=== PATIENT | male | born 1970 | race Caucasian/White ===

== ENCOUNTER → 2019-03-02 11:02 | Outpatient (CLI) | payer BC, SELFPAY ==
--- NOTE | 2019-03-02 11:04 | DI.RAD.S_ITS ---
PROCEDURE: XR LUMBAR SPINE 2-3V INDICATIONS: Low back pain radiating to R hip and leg TECHNIQUE: 3 views of the lumbar spine were acquired. COMPARISON: None. FINDINGS: Bones: 5 [id number] vertebrae are present. There is normal bony alignment. No vertebral body compression fractures. No suspicious bony lesions. Soft tissues: Overlying bowel gas pattern is normal. No suspicious soft tissue calcifications. IMPRESSION: Degenerative disc disease is moderate L5-S1 and facet osteoarthritis also is moderate at that level. The degenerative changes at L4-L5 there are mild and more superiorly no degeneration can be seen. Spinal and foraminal stenosis may be present at L4-5 and L5-S1 based on the degree of degeneration seen and spinal MRI may be warranted given this circumstance. Dictated by: Chava Piper M.D. on 03/02/2019 at 12:00 Approved by: Chava Piper M.D. on 03/02/2019 at 12:01
== END ==
PROVIDERS: PCP Physician Assistant; Visit Provider Physician Assistant
DX: M54.5 Low back pain (principal); M51.17 Intervertebral disc disorders with radiculopathy, lumbosacral region; M47.27 Other spondylosis with radiculopathy, lumbosacral region; M47.26 Other spondylosis with radiculopathy, lumbar region
CPT/HCPCS: 72100

== ENCOUNTER → 2019-09-07 12:02 | Outpatient (CLI) | payer OTHER, SELFPAY ==
--- NOTE | 2019-09-07 12:04 | DI.RAD.S_ITS ---
PROCEDURE: XR FINGER RT MIN 2V INDICATIONS: crushed injury TECHNIQUE: AP hand, 2 views of the 3rd finger(s) acquired. COMPARISON: None. FINDINGS: Bones: No fractures or dislocations. No suspicious bony lesions. Soft tissues: No suspicious soft tissue calcifications. IMPRESSION: No acute osseous abnormalities. Dictated by: Verito Rogers M.D. on 09/07/2019 at 14:41 Approved by: Verito Rogers M.D. on 09/07/2019 at 14:42
== END ==
PROVIDERS: PCP Physician Assistant; Visit Provider Physician Assistant
DX: S67.192A Crushing injury of right middle finger, initial encounter (principal); X58.XXXA Exposure to other specified factors, initial encounter
CPT/HCPCS: 73140

== ENCOUNTER 2020-02-15 09:34 | Emergency (ER) | payer OTHER, SELFPAY ==
[2020-02-15 09:40] VITALS: BP 133/94; PULSE 92; RESP 14; TEMP 36.9; O2SAT 99; BMI 21.9
--- NOTE | 2020-02-15 09:48 | ED_ITS ---
HPI - Extremity Injury (Lower) General Chief Complaint: Extremity Injury, Lower Stated Complaint: left foot, 3 weeks ago dropped steel plate on it Time Seen by Provider: 02/15/20 09:40 Source: patient Mode of arrival: Ambulatory Limitations: no limitations History of Present Illness HPI Narrative: 49M daily smoker with non contributory medical history presents with some ongoing pain and swelling of his left foot since a crush injury 3 weeks ago. He had been seen and evaluated at an outside facility with negative x-rays. There is abrasion but no significant break in the skin, tetanus is up-to-date. He denies any fever or chills. He has no calf pain. He states it hurts worse with ambulation and improves with rest. He is otherwise well and free of complaint MD complaint: foot injury Onset (ago): week(s) Type of Injury: blunt Place: work Severity: moderate Relieving factors: rest Exacerbating factors: weight bearing and movement Context: direct blow Associated symptoms: swelling Other symptoms: none Treatments prior to arrival: cold therapy Related Data Previous Rx's Medication Instructions Recorded doxycycline hyclate 100 mg PO BID #20 tab 02/15/20 Allergies Allergy/AdvReac Type Severity Reaction Status Date / Time naproxen [NAPROXEN] Allergy Intermediate RIP MY Verified 02/15/20 09:46 SKIN OFF Penicillins [PENICILLINS] Allergy Unknown MOTHER Verified 02/15/20 09:46 SAID SO Review of Systems Constitutional Constitutional: Denies chills, Denies fatigue, Denies fever(s), Denies frequent falls, Denies lethargy and Denies weakness Eyes Eyes: Denies change in vision, Denies eye discharge, Denies irritation and Denies loss of vision ENT Ears, Nose, Mouth, and Throat: Denies change in voice, Denies dizziness, Denies neck pain, Denies sore throat and Denies throat swelling Cardiovascular Cardiovascular: Denies chest pain, Denies irregular heart rhythm, Denies lightheadedness, Denies palpitations, Denies dyspnea, Denies dyspnea on exertion and Denies orthopnea Respiratory Respiratory: Denies cough, Denies dyspnea, Denies dyspnea on exertion and Denies wheezing Gastrointestinal Gastrointestinal: Denies abdominal pain, Denies change in bowel habits, Denies diarrhea, Denies nausea and Denies vomiting Genitourinary Genitourinary: Denies hematuria, Denies flank pain, Denies urinary incontinence and Denies urinary urgency Musculoskeletal Musculoskeletal: Denies back pain, Reports limited range of motion, Denies muscle weakness, Denies neck pain, Denies numbness and Denies tingling Integumentary/Breasts Skin/Breast: Denies pruritus, Denies erythema, Denies rash and Denies wounds Neurologic Neurologic: Denies behavioral changes, Denies confusion, Denies dizziness, Denies frequent falls, Denies loss of vision, Denies numbness, Denies tingling and Denies weakness Psychiatric Psychiatric: Denies anxiety, Denies behavioral changes, Denies confusion, Denies depression, Denies homicidal ideation and Denies suicidal ideation Endocrine Endocrine: Denies fatigue, Denies flushing and Denies palpitations Hematologic/Lymphatic Hematologic/Lymphatic: Denies easy bruising Allergic/Immunologic Allergic/Immunologic: Denies urticaria, Denies throat swelling and Denies wheezing Patient History Social History Smoking Status: Current every day smoker Smoking Status: Current every day smoker alcohol intake frequency: 0-2 drinks per day Substance Use Type: does not use Exam Narrative Exam Narrative: GEN: AOx3 and in mild distress EYES: Pupils are equal, round, and reactive to light and accommodation. Extraoccular muscles are intact bilaterally. There is no subconjunctival hemorrhage or exudate. CHEST: Lungs are clear to auscultation bilaterally and free of wheezes, rales, or rhonchi. Heart rate is regular rhythm, there are no murmurs, clicks, rubs, or gallops. There is no chest wall tenderness. ABD: Abdomen is soft and nontender. There is no guarding or rebound. Bowel sounds are normal in all 4 quadrants. There is no mass or organomegaly. EXT: Left foot with mild swelling and appropriately healing abrasion, minimal erythema no fluctuance or induration. No lymphangitis Full painless ROM of all extremities with no loss of sensation or strength. SKIN: Warm, pink, and dry. No erythema or rash other than that which is noted above Initial Vital Signs Initial Vital Signs: Vital Signs Temperature 98.5 F 02/15/20 09:40 Pulse Rate 92 H 02/15/20 09:40 Respiratory Rate 14 02/15/20 09:40 Blood Pressure 133/94 H 02/15/20 09:40 Pulse Oximetry 99 05/14/20 09:40 Course Orders Ordered: ED Orders 02/15/20 09:48 XR foot LT min 3V Stat Vital Signs Vital signs: Vital Signs - 8 hr 02/15/20 09:40 Temperature 98.5 F Pulse Rate 92 H Respiratory Rate 14 Blood Pressure 133/94 H Pulse Oximetry 99 MDM - Extremity Injury (Lower) Imaging Data Extremity x-ray #1: Radiologist's Impression: [address] [address] XRay Report Signed Patient: Adebayo Castañeda JMR#: [id number] : 1970Acct:[id number] Age/Sex: 49 / MDate of Service: 02/15/20 Loc: ED Accession Number: [id number] Procedure: XR foot LT min 3V Ordering Provider: Bry Tay D.O. PROCEDURE: XR FOOT LT MIN 3V INDICATIONS: crush injury, worsening pain/swelling TECHNIQUE: 3 views of the foot were acquired. COMPARISON: None. FINDINGS: Bones: No fractures or dislocations. No suspicious bony lesions. Soft tissues: No tibiotalar joint effusion. Achilles tendon appears normal. IMPRESSION: No acute fracture. No osseous lesion. If symptoms and/or clinical suspicion for pathology persist, further assessment with repeat, or advanced imaging (e.g., CT, MRI, or bone scan) may be helpful for further assessment. Dictated by: Stefany Lehman M.D. on 02/15/2020 at 10:48 Approved by: Stefany Lehman M.D. on 02/15/2020 at 10:48 Discharge Plan Departure Patient Disposition: Home Clinical Impression: Cellulitis of foot Instructions: DI for Cellulitis -- Adult Activity Restrictions/Additional Instructions: *You have been diagnosed with [cellulitis of left foot] *What to do: *Take medications as directed: Antibiotic electronically transmitted to [facility] pharmacy at your request *Follow up with your primary care provider in 2-3 days, call for an appointment. Let them know you were seen in the Emergency Department and that we ask that you be seen in follow up *Return to ER if you should have any new, worsening or concerning symptoms Prescriptions: New doxycycline hyclate 100 mg tablet 100 mg PO BID Qty: 20 RF: 0 Referrals: Abimbola Farah PA-C [Primary Care Provider] -
[2020-02-15 11:15] VITALS: BP 133/94; PULSE 76; RESP 12; O2SAT 98
== END 2020-02-15 11:17 | disposition home or self-care (01) ==
PROVIDERS: Emergency Provider Emergency Medicine; PCP Physician Assistant
DX: L03.116 Cellulitis of left lower limb (principal)
CPT/HCPCS: 73630; 99283

== ENCOUNTER 2022-02-19 10:53 | Emergency (ER) | payer SELFPAY ==
[2022-02-19] VITALS (10 sets, daily range): BP systolic 119–158; BP diastolic 76–99; PULSE 86–99; RESP 12–20; TEMP 36.6; O2SAT 99–100; BMI 21.9
--- NOTE | 2022-02-19 11:01 | DI.RAD.S_ITS ---
PROCEDURE: XR CHEST 1V INDICATIONS: chest pain TECHNIQUE: One view of the chest was acquired. COMPARISON: [facility], , CHEST 2 VIEW, 05/23/2015, 14:59. FINDINGS: Surgical changes and devices: None. Lungs and pleura: Lungs are clear. No pleural effusions or pneumothorax. Mediastinum: Mediastinal contours appear normal. Heart size is normal. Bones and chest wall: No suspicious bony lesions. Overlying soft tissues appear unremarkable. There is scoliosis of the cervicothoracic spine. IMPRESSION: No acute cardiopulmonary abnormality. Dictated by: Kameron Molina M.D. on 02/19/2022 at 11:28 Approved by: Kameron Molina M.D. on 02/19/2022 at 11:29
[2022-02-19 11:35] LABS: NT-proBNP (BNP-Adult 18+) 78 pg/mL (<125)
[2022-02-19 11:43] LABS: COVID19 -Nasal RAPID Negative (Negative)
[2022-02-19 12:18] LABS: Add Manual Diff / Slide Review NO; Basophils Absolute Auto 100 /uL (0-100); Basophils Percent Auto 0.8 % (0-2); Eosinophils Absolute Auto 100 /uL (0-450); Eosinophils Percent Auto 0.7 % (2-4); Hematocrit 42.8 % (41-53); Hemoglobin 15.2 g/dL (13.5-17.5); Lymphocytes Absolute Auto 3100 /uL (1100-4500); Lymphocytes Percent Auto 35.4 % (25-40); Mean Corpuscular HGB Conc 35.4 % (30-36); Mean Corpuscular Hemoglobin 33.8 PG (26-34); Mean Corpuscular Volume 95.4 fL (80-100); Monocytes Absolute Auto 800 /uL (0-900); Monocytes Percent Auto 9.5 % (3-14); Neutrophils Absolute Auto 4700 /uL (1500-7000); Neutrophils Percent Auto 53.6 % (50-75); Platelet Count 327 X10^3/uL (150-400); Red Blood Cell Count 4.49 X10^6/uL (4.5-5.9); Red Cell Distribution Width 12.5 % (11.6-14.8); White Blood Cell Count 8.8 X10^3/uL (4.5-11.0)
[2022-02-19 12:21] LABS: Alanine Aminotransferase 123 IU/L (<50); Albumin 3.6 g/dL (3.5-5.0); Albumin Globulin Ratio 1.2 (1.0-2.8); Alkaline Phosphatase 193 U/L (38-126); Aspartate Aminotransferase 154 IU/L (17-59); BUN Creatinine Ratio 9.3 (6-22); Bilirubin Total 1.8 mg/dL (0.2-1.3); Blood Urea Nitrogen 8 mg/dL (9-20); Calcium 8.9 mg/dL (8.4-10.2); Carbon Dioxide 24 mmol/L (22-32); Chloride 98 mmol/L (98-107); Creatine Kinase 24 U/L (55-170); Estimated Glomerular Filt Rate > 60 mL/min (>60); Globulin 3.1 g/dL (1.7-4.1); Glucose 95 mg/dL (70-100); HEMOLYSIS 22 (0-50); Lipase 87 U/L (23-300); Potassium 4.6 mmol/L (3.4-5.1); Sodium 130 mmol/L (137-145); Total Protein 6.7 g/dL (6.3-8.2)
[2022-02-19 12:33] LABS: Troponin I < 0.012 ng/mL (0.01-0.034)
--- NOTE | 2022-02-19 14:15 | ED_ITS ---
HPI - Chest Pain General Chief Complaint: Chest Pain Stated Complaint: chest pain left arm pain tingle Time Seen by Provider: 02/19/22 11:05 Source: patient Mode of arrival: Ambulatory Limitations: no limitations Limitations: no limitations History of Present Illness HPI narrative: This is a 51-year-old male comes in with complaint of epigastric pain that is intermittent it seems to be worse with food. Patient states he will occasionally get nauseated, sometimes feel lightheaded. He has not any syncope but he has had decreasing weight over the past several months no fevers or chills. He describes his pain more is epigastric. Patient has not had any new back or flank pain. He will occasionally have diarrhea but not frequently. No black or bloody stools. No emesis. No rash or skin changes. Patient does not have any known past medical history, no prior surgeries, he is allergic to penicillin and naproxen but states he can take ibuprofen without issue. He smokes a pack per day of tobacco, 1 alcoholic drink nightly, no illicit. Related Data Previous Rx's Medication Instructions Recorded doxycycline hyclate 100 mg tablet 100 mg PO BID #20 tab 02/15/20 Allergies Allergy/AdvReac Type Severity Reaction Status Date / Time naproxen [NAPROXEN] Allergy Intermediate RIP MY Verified 02/19/22 11:12 SKIN OFF Penicillins [PENICILLINS] Allergy Unknown MOTHER Verified 02/19/22 11:12 SAID SO Review of Systems Review of Systems ROS Unobtainable: All systems reviewed & are unremarkable except as noted in HPI and below Patient History Social History Smoking Status: Current every day smoker Smoking Status: Current every day smoker alcohol intake frequency: 0-2 drinks per day Substance Use Type: does not use Exam Narrative Exam Narrative: GENERAL: Alert and oriented x three, thin male in mild distress. HEENT: Head normocephalic, atraumatic, EOMI, pupils reactive, face symmetric, moist mucous membranes NECK: Supple, full range of motion CARDIOVASCULAR: Regular rate and rhythm without murmurs, rubs or gallops. RESPIRATORY: Breath sounds equal bilaterally, no wheezes rales or rhonchi. ABDOMEN: Soft, mild epigastric tenderness. Normoactive bowel sounds all 4 quadr ants. No guarding or rebound, rigidity, no mass : No CVA tenderness EXTREMITIES: Normal range of motion, no clubbing or edema. Neurovascularly intact NEUROLOGICAL: Cranial nerves II through XII grossly intact. Moving all extremities SKIN: Warm, dry, no petechiae, no rashes or lesions. Initial Vital Signs Initial Vital Signs: Vital Signs Blood Pressure 158/99 H 02/19/22 11:05 Course Orders Ordered: ED Orders 02/19/22 10:59 Magnesium Stat Partial Thromboplastin Time Stat Prothrombin Time INR Stat 02/19/22 11:01 XR chest 1V Stat EKG-12 Lead Stat 02/19/22 11:07 BNP [NT-proBNP (BNP-Adult 18+)] Stat Complete Blood Count AUTO DIFF Stat Comprehensive Metabolic Panel Stat Lipase Stat Troponin & CK Cardiac Panel Stat 02/19/22 11:10 COVID19 -Nasal RAPID/Pre-Proc Stat 02/19/22 14:29 US abdomen complete Stat 02/19/22 15:48 Hepatitis Acute Panel Stat Vital Signs Vital signs: Vital Signs - 8 hr 02/19/22 11:05 02/19/22 11:09 02/19/22 11:13 Temperature 97.9 F Pulse Rate 99 H Respiratory Rate 18 Blood Pressure 158/99 H 139/89 158/99 H Pulse Oximetry 100 02/19/22 11:30 02/19/22 12:00 02/19/22 12:30 Temperature Pulse Rate 88 90 88 Respiratory Rate 12 19 13 Blood Pressure 120/82 128/82 119/82 Pulse Oximetry 100 100 100 02/19/22 13:00 02/19/22 13:25 02/19/22 13:30 Temperature Pulse Rate 87 90 86 Respiratory Rate 17 15 20 Blood Pressure 127/76 133/90 132/88 Pulse Oximetry 99 99 100 02/19/22 14:00 Temperature Pulse Rate 88 Respiratory Rate 18 Blood Pressure 120/89 Pulse Oximetry 100 MDM - Chest Pain Lab Data Result diagrams: 02/19/22 11:07 02/19/22 11:07 Labs: Lab Results 02/19/22 02/19/22 02/19/22 Range/Units 11:07 11:07 11:07 WBC (4.5-11.0) X10^3/uL RBC (4.5-5.9) X10^6/uL Hgb (13.5-17.5) g/dL Hct (41-53) % MCV (80-100) fL MCH (26-34) PG MCHC (30-36) % RDW (11.6-14.8) % Plt Count (150-400) X10^3/uL Neut % (Auto) (50-75) % Lymph % (Auto) (25-40) % Sheridan % (Auto) (3-14) % Eos % (Auto) (2-4) % Baso % (Auto) (0-2) % Neut # (Auto) (9721-2040) /uL Lymph # (Auto) (7561-1988) /uL Sheridan # (Auto) (0-900) /uL Eos # (Auto) (0-450) /uL Baso # (Auto) (0-100) /uL PT 10.1 (10.1-12.7) SECONDS INR 0.9 (0.9-1.3) APTT 33 (26.4-36.2) SECONDS Sodium (137-145) mmol/L Potassium (3.4-5.1) mmol/L Chloride (98-107) mmol/L Carbon Dioxide (22-32) mmol/L BUN (9-20) mg/dL Creatinine (0.66-1.25) mg/dL Estimated GFR (>60) mL/min BUN/Creatinine Ratio (6-22) Glucose (70-100) mg/dL Calcium (8.4-10.2) mg/dL Magnesium 2.1 (1.6-2.3) mg/dL Total Bilirubin (0.2-1.3) mg/dL AST (17-59) IU/L ALT (<50) IU/L Alkaline Phosphatase (38-126) U/L Total Creatine Kinase (55-170) U/L CK-MB (CK-2) CK-MB (CK-2) Rel Index Troponin I (0.01-0.034) ng/mL NT-Pro-B Natriuret Pep 78 (<125) pg/mL Total Protein (6.3-8.2) g/dL Albumin (3.5-5.0) g/dL Globulin (1.7-4.1) g/dL Albumin/Globulin Ratio (1.0-2.8) Lipase (23-300) U/L SARS-CoV-2 (PCR) (Negative) Hepatitis A IgM Ab (Negative) Hep Bs Antigen (Negative) Hep B Core IgM Ab (Negative) Hepatitis C Antibody (0.0-0.9) s/co ratio Hep C Ab Signal/Cutoff (.) 02/19/22 02/19/22 02/19/22 Range/Units 11:07 11:07 11:10 WBC 8.8 (4.5-11.0) X10^3/uL RBC 4.49 L (4.5-5.9) X10^6/uL Hgb 15.2 (13.5-17.5) g/dL Hct 42.8 (41-53) % MCV 95.4 (80-100) fL MCH 33.8 (26-34) PG MCHC 35.4 (30-36) % RDW 12.5 (11.6-14.8) % Plt Count 327 (150-400) X10^3/uL Neut % (Auto) 53.6 (50-75) % Lymph % (Auto) 35.4 (25-40) % Sheridan % (Auto) 9.5 (3-14) % Eos % (Auto) 0.7 L (2-4) % Baso % (Auto) 0.8 (0-2) % Neut # (Auto) 4700 (1799-5603) /uL Lymph # (Auto) 3100 (0050-0272) /uL Sheridan # (Auto) 800 (0-900) /uL Eos # (Auto) 100 (0-450) /uL Baso # (Auto) 100 (0-100) /uL PT (10.1-12.7) SECONDS INR (0.9-1.3) APTT (26.4-36.2) SECONDS Sodium 130 L (137-145) mmol/L Potassium 4.6 (3.4-5.1) mmol/L Chloride 98 (98-107) mmol/L Carbon Dioxide 24 (22-32) mmol/L BUN 8 L (9-20) mg/dL Creatinine 0.86 (0.66-1.25) mg/dL Estimated GFR > 60 (>60) mL/min BUN/Creatinine Ratio 9.3 (6-22) Glucose 95 (70-100) mg/dL Calcium 8.9 (8.4-10.2) mg/dL Magnesium (1.6-2.3) mg/dL Total Bilirubin 1.8 H (0.2-1.3) mg/dL AST 154 H (17-59) IU/L ALT 123 H (<50) IU/L Alkaline Phosphatase 193 H (38-126) U/L Total Creatine Kinase 24 L (55-170) U/L CK-MB (CK-2) TNP CK-MB (CK-2) Rel Index TNP Troponin I < 0.012 (0.01-0.034) ng/mL NT-Pro-B Natriuret Pep (<125) pg/mL Total Protein 6.7 (6.3-8.2) g/dL Albumin 3.6 (3.5-5.0) g/dL Globulin 3.1 (1.7-4.1) g/dL Albumin/Globulin Ratio 1.2 (1.0-2.8) Lipase 87 (23-300) U/L SARS-CoV-2 (PCR) Negative (Negative) Hepatitis A IgM Ab (Negative) Hep Bs Antigen (Negative) Hep B Core IgM Ab (Negative) Hepatitis C Antibody (0.0-0.9) s/co ratio Hep C Ab Signal/Cutoff (.) 02/19/22 Range/Units 16:00 WBC (4.5-11.0) X10^3/uL RBC (4.5-5.9) X10^6/uL Hgb (13.5-17.5) g/dL Hct (41-53) % MCV (80-100) fL MCH (26-34) PG MCHC (30-36) % RDW (11.6-14.8) % Plt Count (150-400) X10^3/uL Neut % (Auto) (50-75) % Lymph % (Auto) (25-40) % Sheridan % (Auto) (3-14) % Eos % (Auto) (2-4) % Baso % (Auto) (0-2) % Neut # (Auto) (1744-9992) /uL Lymph # (Auto) (1436-2532) /uL Sheridan # (Auto) (0-900) /uL Eos # (Auto) (0-450) /uL Baso # (Auto) (0-100) /uL PT (10.1-12.7) SECONDS INR (0.9-1.3) APTT (26.4-36.2) SECONDS Sodium (137-145) mmol/L Potassium (3.4-5.1) mmol/L Chloride (98-107) mmol/L Carbon Dioxide (22-32) mmol/L BUN (9-20) mg/dL Creatinine (0.66-1.25) mg/dL Estimated GFR (>60) mL/min BUN/Creatinine Ratio (6-22) Glucose (70-100) mg/dL Calcium (8.4-10.2) mg/dL Magnesium (1.6-2.3) mg/dL Total Bilirubin (0.2-1.3) mg/dL AST (17-59) IU/L ALT (<50) IU/L Alkaline Phosphatase (38-126) U/L Total Creatine Kinase (55-170) U/L CK-MB (CK-2) CK-MB (CK-2) Rel Index Troponin I (0.01-0.034) ng/mL NT-Pro-B Natriuret Pep (<125) pg/mL Total Protein (6.3-8.2) g/dL Albumin (3.5-5.0) g/dL Globulin (1.7-4.1) g/dL Albumin/Globulin Ratio (1.0-2.8) Lipase (23-300) U/L SARS-CoV-2 (PCR) (Negative) Hepatitis A IgM Ab Negative (Negative) Hep Bs Antigen Negative (Negative) Hep B Core IgM Ab Negative (Negative) Hepatitis C Antibody <0.1 (0.0-0.9) s/co ratio Hep C Ab Signal/Cutoff Comment (.) Imaging Data Chest x-ray: Radiologist's Impression: [address] [address] XRay Report Signed Patient: Adebayo Castañeda MR#: [id number] : 1970 Acct:[id number] Age/Sex: 51 / M Date of Service: 02/19/22 Loc: ED Accession Number: [id number] ?? Procedure: XR chest 1V Ordering Provider: Renetta Bauman D.O. PROCEDURE:? XR CHEST 1V ? INDICATIONS:? chest pain ? TECHNIQUE:? One view of the chest was acquired.? ? COMPARISON:? [facility], CR, CHEST 2 VIEW, 05/23/2015, 14:59. ? FINDINGS:? ? Surgical changes and devices:? None.? ? Lungs and pleura:? Lungs are clear.? No pleural effusions or pneumothorax.? ? Mediastinum:? Mediastinal contours appear normal.? Heart size is normal.? ? Bones and chest wall:? No suspicious bony lesions.? Overlying soft tissues appear unremarkable.? There is scoliosis of the cervicothoracic spine. ? IMPRESSION:? No acute cardiopulmonary abnormality. ? ? ? Dictated by: Kameron Molina M.D. on 02/19/2022 at 11:28 ? ? Approved by: Kameron Molina M.D. on 02/19/2022 at 11:29?? US - abdomen: Radiologist's Impression: Launch?[place] [address] Ultrasound Report Signed Patient: Adebayo Castañeda MR#: [id number] : 1970 Acct:[id number] Age/Sex: 51 / M Date of Service: 02/19/22 Loc: ED Accession Number: [id number] ?? Procedure: US abdomen complete Ordering Provider: Renetta Bauman D.O. PROCEDURE:? US ABDOMEN COMPLETE ? INDICATIONS:? epigastric pain, elevated. ? TECHNIQUE:? Real-time scanning was performed of the abdominal and retroperitoneal organs, with image documentation.? ? COMPARISON:? None. ? FINDINGS:? ? Liver:? Liver is normal in size and homogeneous in echotexture.? ? Gallbladder:? No stones.? No wall thickening or pericholecystic fluid. ? Biliary ducts:? Intrahepatic bile ducts are non-dilated.? Extrahepatic bile duct caliber measures 3.3 mm.? Normal is 6-7 mm or less in diameter, or 10 mm or less post-cholecystectomy.? ? Pancreas:? Not well seen. ? Spleen:? Not visualized. ? Kidneys:? Kidneys are normal in size and echotexture.? Right kidney measures 10.5 cm long; left kidney measures 9.5 cm long.? No hydronephrosis or nephrolithiasis.? No solid masses.? ? Aorta:? Visualized aorta is normal in caliber at less than 3 cm.? ? Iliacs:? Proximal common iliac arteries are normal in caliber at less than 2.5 cm.? ? IVC:? Intrahepatic inferior vena cava is patent.? ? Miscellaneous:? No free abdominal fluid.? ? ? IMPRESSION:? Limited exam due to large amount of bowel gas.? No acute abnormality identified. ? ? Dictated by: Kameron Molina M.D. on 02/19/2022 at 15:27 ? ? Approved by: Kameron Molina M.D. on 02/19/2022 at 15:29?? ECG Data Attestation: I personally reviewed and interpreted this ECG as follows: Prior ECG tracings: available for review Interpretation: Sinus rhythm, 96, MS 154, QRS [address]TC [address] No acute ST elevation noted. No depression noted. Patient does not have any priors for comparison. MDM Narrative Medical decision making narrative: This is a 51-year-old male who comes in for chest pain but after further evaluation seems to be more epigastric with nausea, weight loss and symptoms worsened with food. Patient has elevation in his bilirubin, AST/ALT and alk- phos. Patient does not have any known medical issues but has not seen a physician in some time, he does use tobacco and occasional alcohol. He states he was prompted to come today by his significant other and was then referred from the walk-in clinic here. Patient EKG and troponin do not show any major abnormalities ultrasound was obtained which does not show any clear cause for his elevated liver enzymes. Hepatitis panel sent. Patient was recommended have CT scan, he has been here quite some time and would like to return home. He is aware that he does need to follow-up. He does not currently have insurance and was given paperwork for [employer] and is open to having social Work reach out to him to assist. Patient is aware that he does need follow-up irregardless of his hepatitis panel is negative. Discharge Plan Departure Patient Disposition: Home Clinical Impression: Epigastric pain Instructions: DI for Epigastric Pain Activity Restrictions/Additional Instructions: Follow up with primary care for recheck. If you do not have one you can call [phone] to establish care. Your liver enzymes are elevated today and need to be followed. A hepatitis panel is pending. This uptake several days to week to result. You need to follow up these results if her hepatitis panel is positive he will require treatment. If negative you need to follow-up with either a primary care physician or General surgery for more evaluation for your liver enzymes. Please return for fevers, new or worsening abdominal pain, persistent vomiting, passing out, black, bloody stools, garry-colored stools or other new or co ncerning symptoms. Prescriptions: No Action doxycycline hyclate 100 mg tablet 100 mg PO BID Qty: 20 0RF Referrals: Kameron Kevin MD [Physician] - Miscellaneous,MD Bharath [Primary Care Provider] -
--- NOTE | 2022-02-19 14:29 | DI.US.S_ITS ---
PROCEDURE: US ABDOMEN COMPLETE INDICATIONS: epigastric pain, elevated. TECHNIQUE: Real-time scanning was performed of the abdominal and retroperitoneal organs, with image documentation. COMPARISON: None. FINDINGS: Liver: Liver is normal in size and homogeneous in echotexture. Gallbladder: No stones. No wall thickening or pericholecystic fluid. Biliary ducts: Intrahepatic bile ducts are non-dilated. Extrahepatic bile duct caliber measures 3.3 mm. Normal is 6-7 mm or less in diameter, or 10 mm or less post-cholecystectomy. Pancreas: Not well seen. Spleen: Not visualized. Kidneys: Kidneys are normal in size and echotexture. Right kidney measures 10.5 cm long; left kidney measures 9.5 cm long. No hydronephrosis or nephrolithiasis. No solid masses. Aorta: Visualized aorta is normal in caliber at less than 3 cm. Iliacs: Proximal common iliac arteries are normal in caliber at less than 2.5 cm. IVC: Intrahepatic inferior vena cava is patent. Miscellaneous: No free abdominal fluid. IMPRESSION: Limited exam due to large amount of bowel gas. No acute abnormality identified. Dictated by: Kameron Molina M.D. on 02/19/2022 at 15:27 Approved by: Kameron Molina M.D. on 02/19/2022 at 15:29
[2022-02-19 15:55] LABS: INR 0.9 (0.9-1.3); Prothrombin Time 10.1 SECONDS (10.1-12.7)
[2022-02-19 15:58] LABS: PTT Partial Thromboplastin Tim 33 SECONDS (26.4-36.2)
[2022-02-19 16:22] LABS: Magnesium 2.1 mg/dL (1.6-2.3)
[2022-02-20 06:19] LABS: HBsAg Screen Negative (Negative); Hepatitis A Antibody IgM Negative (Negative); Hepatitis B Core Antibody IgM Negative (Negative); Hepatitis C Antibody <0.1 s/co ratio (0.0-0.9)
== END 2022-02-19 16:32 | disposition home or self-care (01) ==
PROVIDERS: Emergency Provider Emergency Medicine
DX: R10.13 Epigastric pain (principal); R11.0 Nausea; R42 Dizziness and giddiness; R07.9 Chest pain, unspecified; Z20.822 Contact with and (suspected) exposure to COVID-19
CPT/HCPCS: 36415; 71045; 76700; 80053; 80074; 82550; 83690; 83735; 83880; 84484; 85025; 85610; 85730; 87635; 93005; 93010; 99284; C9803

== ENCOUNTER 2023-08-06 18:18 | Emergency (ER) | payer OTHER, SELFPAY ==
[2023-08-06 18:28] VITALS: BP 131/78; PULSE 99; RESP 17; TEMP 36.8; O2SAT 98; BMI 21.9
--- NOTE | 2023-08-06 18:33 | DI.RAD.S_ITS ---
PROCEDURE: XR HIP W PEL IF DONE LT 2V INDICATIONS: fall, groin pain TECHNIQUE: AP pelvis with lateral view(s) of the left hip(s). COMPARISON: None. FINDINGS: Bones: Possible nondisplaced left inferior pubic ramus fracture. The corresponding obturator ring fracture is not identified. Proximal femur appears intact. No dislocation. Joint spacing is fairly normal. Soft tissues: The visualized bowel gas pattern is normal. No suspicious soft tissue calcifications. IMPRESSION: 1. Suspect nondisplaced left inferior pubic ramus fracture. Dictated by: Dian Dutton M.D. on 08/06/2023 at 20:40 Approved by: Dian Dutton M.D. on 08/06/2023 at 20:41
[2023-08-06] MEDS: HYDROCODONE/ACET 5/325 TABLET 1 TAB PO (21:49)
--- NOTE | 2023-08-06 22:14 | ED.FALL ---
HPI - Fall General Chief Complaint: Fall Stated Complaint: fell at work/lt hip inj/can't walk Time Seen by Provider: 08/06/23 21:37 Source: patient Mode of arrival: Wheelchair History of Present Illness HPI Narrative: Patient is a 53-year-old male who is here for evaluation of a left-sided groin/lower back/pelvic injury. He states that he was at work. He was pulling on an object when he fell backwards and landed directly on his buttocks/left hip. Has had difficulty with walking on his left hip since that time. No other injuries from the event. Did not hit his head. No loss of consciousness. No prior injuries. Related Data Previous Rx's Medication Instructions Recorded doxycycline hyclate 100 mg tablet 100 mg PO BID #20 tabs 02/15/20 hydrocodone 5 mg-acetaminophen 325 1 tab PO Q4-6H PRN pain #14 tabs 08/06/23 mg tablet Allergies Allergy/AdvReac Type Severity Reaction Status Date / Time naproxen [NAPROXEN] Allergy Intermediate RIP MY Verified 08/06/23 18:28 SKIN OFF Penicillins [PENICILLINS] Allergy Unknown MOTHER Verified 08/06/23 18:28 SAID SO Review of Systems Musculoskeletal Musculoskeletal: Reports system reviewed and no additional complaints, except as documented Integumentary/Breasts Skin/Breast: Reports system reviewed and no additional complaints, except as documented Neurologic Neurologic: Reports system reviewed and no additional complaints, except as documented Hematologic/Lymphatic On Anticoagulants: No Patient History Social History Smoking Status: Current every day smoker Smoking Status: Current every day smoker alcohol intake frequency: 0-2 drinks per day Substance Use Type: does not use Exam Initial Vital Signs Initial Vital Signs: Vital Signs Temperature 98.2 F 08/06/23 18:28 Pulse Rate 99 H 08/06/23 18:28 Respiratory Rate 17 08/06/23 18:28 Blood Pressure 131/78 08/06/23 18:28 Pulse Oximetry 98 08/06/23 18:28 Oxygen Delivery Method Room Air 08/06/23 18:28 HENWV Head: normal to inspection and normocephalic Resp Effort & Inspection: normal respiratory effort Cardio Rate: regular rate Neuro General: patient alert and patient awake Extrem Other: Discomfort with movement of the left hip Course Orders Ordered: Discontinued Medications Hydrocodone Bitart/Acetaminophen (Hydrocodone/Acet 5/325 Tablet) 1 tab PO NOW ONE Stop: 08/06/23 21:38 Last Admin: 08/06/23 21:49 Dose: 1 tab Documented By: RUTH Hydrocodone Bitart/Acetaminophen (Hydrocodone/Acet 5/325 Prepack) 1 bottle MIS SEEINSTR ONE Stop: 08/06/23 22:15 Last Admin: 08/06/23 22:30 Dose: 1 bottle Documented By: RUTH Vital Signs Vital signs: Vital Signs - 8 hr 08/06/23 22:41 Temperature 98 F Pulse Rate 78 Respiratory Rate 18 Blood Pressure 148/82 H Pulse Oximetry 96 Oxygen Delivery Method Room Air MDM - Fall Imaging Data Pelvis x-ray: Radiologist's Impression: PROCEDURE: XR HIP W PEL IF DONE LT 2V INDICATIONS: fall, groin pain TECHNIQUE: AP pelvis with lateral view(s) of the left hip(s). COMPARISON: None. FINDINGS: Bones: Possible nondisplaced left inferior pubic ramus fracture. The corresponding obturator ring fracture is not identified. Proximal femur appears intact. No dislocation. Joint spacing is fairly normal. Soft tissues: The visualized bowel gas pattern is normal. No suspicious soft tissue calcifications. IMPRESSION: 1. Suspect nondisplaced left inferior pubic ramus fracture. [facility] Narrative Medical decision making narrative: X-ray does show left inferior pubic rami fracture. Had a long discussion with the patient and his regarding this injury. No indication for admission to the hospital. He has crutches and a walker available to him at home if needed. Will send home with pain medication. No indication for advanced radiologic studies such as a CT scan. He was given return precautions. He expressed understanding and agreement. Discharge Plan Departure Patient Disposition: Home Clinical Impression: Inferior pubic ramus fracture Instructions: DI for Pelvic Fracture Activity Restrictions/Additional Instructions: You are able to walk as tolerated. You can use the crutches or walker as needed. Use the pain medication as needed as well. Contact your primary doctor for a follow-up. Return to the emergency department for new or worsening symptoms. Prescriptions: New hydrocodone-acetaminophen 5-325 mg tablet 1 tab PO Q4-6H PRN (Reason: pain) Qty: 14 0RF No Action doxycycline hyclate 100 mg tablet 100 mg PO BID Qty: 20 0RF Referrals: Miscellaneous,Doctor, [Primary Care Provider] - Stand Alone Forms: Patient Portal/API, Work Release Note
[2023-08-06] MEDS: HYDROCODONE/ACET 5/325 PREPACK 1 BOTTLE MISC (22:30)
[2023-08-06 22:41] VITALS: BP 148/82; PULSE 78; RESP 18; TEMP 36.6; O2SAT 96
== END 2023-08-06 22:42 | disposition home or self-care (01) ==
PROVIDERS: Emergency Provider Emergency Medicine
DX: S32.592A Other specified fracture of left pubis, initial encounter for closed fracture (principal); W18.30XA Fall on same level, unspecified, initial encounter; Y99.0 Civilian activity done for income or pay
CPT/HCPCS: 73502; 99283

== ENCOUNTER → 2023-10-26 10:59 | Outpatient (CLI) | payer OTHER, SELFPAY ==
--- NOTE | 2023-10-26 11:00 | DI.CT.S_ITS ---
PROCEDURE: CT LUNG LOW DOSE SCREENING INDICATIONS: Screen for lung cancer with smoking history TECHNIQUE: Noncontrast 2.0-2.5 mm thick sections acquired from the pulmonary apices to the posterior costophrenic angles. 7 mm thick axial MIP, and 5 mm coronal and sagittal reformats were then acquired. For radiation dose reduction, the following was used: automated exposure control, adjustment of mA and/or kV according to patient size. COMPARISON: None. FINDINGS: Image quality: Diagnostic. Lower Neck: No enlarged lymph nodes. Thyroid: No thyroid nodules which require sonographic follow up, per consensus guidelines. Axillae: No enlarged lymph nodes. Chest Wall: Unremarkable. Bones: Unremarkable. Lungs and Pleura: No pneumothorax or pleural effusions. Moderate centrilobular emphysema. Biapical scarring. 2 mm solid nodule, anterior left upper lobe (series 3, image 52). Heart: Heart size is normal. No pericardial effusion. Marked coronary artery calcifications for age. Thoracic Vessels: The aorta and pulmonary arteries demonstrate normal size. Mediastinum and Krissy: No enlarged lymph nodes. Esophagus: No wall thickening. No hiatal hernia. Upper Abdomen: Visualized upper abdomen solid organs and bowel loops appear normal. IMPRESSION: No suspicious pulmonary nodules. LUNG-RADS 2; continued annual screening, if eligible. Clinically Significant Non-pulmonary Findings: Marked coronary artery calcifications for age. Consider cardiology referral. Dictated by: Ron Graham M.D. on 10/26/2023 at 13:12 Approved by: Ron Graham M.D. on 10/26/2023 at 13:14
== END ==
LOC: CT 11:00
PROVIDERS: PCP Student in an Organized Health Care Education/Training Program; Referring Provider Student in an Organized Health Care Education/Training Program; Visit Provider Student in an Organized Health Care Education/Training Program
DX: F17.210 Nicotine dependence, cigarettes, uncomplicated (principal); Z12.2 Encounter for screening for malignant neoplasm of respiratory organs; I25.10 Atherosclerotic heart disease of native coronary artery without angina pectoris
CPT/HCPCS: 71271

== ENCOUNTER 2023-11-02 13:50 | Day surgery (SDC) | payer OTHER, SELFPAY ==
--- NOTE | 2023-11-02 | PATH_ITS ---
[facility] Accession Number: [id number] No. of containers..02 Tissue . 01 Material submitted: . PART A: colon - SIGMOID POLYP PART B: rectum - RECTUM POLYP . 01 Diagnosis: A. Sigmoid Colon Polyp, Biopsy: Tubular adenoma. . B. Rectal Polyp, Biopsy: Hyperplastic polyp. MRV 11/04/2023 1704 Local . 01 Electronically signed: . Luci Quispe MD, Pathologist NPI- [id number] . 01 Gross description: . Part A: SIGMOID POLYP: Received in formalin is 1 fragment(s) of hines, soft tissue measuring 0.6 x 0.5 x 0.4 cm submitted entirely in 1 cassette(s) Part B: RECTUM POLYP: Received in formalin is 1 fragment(s) of hines, soft tissue measuring 0.5 x 0.2 x 0.2 cm submitted entirely in 1 cassette(s) /MAGDA 11/03/2023 2044 Local . 01 Pathologist provided ICD-10: D12.5, D12.8 . 01 CPT . 086974, [id number] Specimen Comment: A courtesy copy of this report has been sent to [phone] Performed at: 01 [facility] [address] [place] [address] [address] [facility] [place] [facility] [place], [place], [place] [id number] MD Tomás Herman MD Phone: [phone]
[2023-11-02] MEDS: LACTATED RINGERS 1,000 ML 42 ML IV (13:59)
[2023-11-02 14:00] VITALS: BP 124/76; PULSE 87; RESP 16; TEMP 36.5; O2SAT 99
--- NOTE | 2023-11-02 14:24 | PM.HP.1 ---
History of Present Illness History of Present Illness Date Patient Seen: 11/02/23 Time Patient Seen: 14:24 Chief complaint: Screening Colonoscopy Narrative: 53-year-old man here for screening colonoscopy. No previous colonoscopy. No family history of intestinal malignancy. No abdominal concerns today. [facility] Social History Smoking Status: Current every day smoker alcohol intake: current Meds Home Medications and Allergies Home Medications Medication Instructions Recorded Confirmed Type lisinopril 5 mg tablet 5 mg PO DAILY #90 tabs 10/20/23 11/02/23 Rx levothyroxine 25 mcg capsule 25 mcg PO DAILY #90 caps 11/01/23 11/02/23 Rx Allergies Allergy/AdvReac Type Severity Reaction Status Date / Time naproxen [NAPROXEN] Allergy Intermediate RIP MY Verified 11/02/23 13:57 SKIN OFF Penicillins [PENICILLINS] Allergy Unknown MOTHER Verified 11/02/23 13:57 SAID SO Exam Vital Signs (past 8 hours): - 11/02/23 14:00 Temperature 97.7 F Pulse Rate 87 Respiratory Rate 16 Blood Pressure 124/76 Pulse Oximetry 99 Oxygen Delivery Method Room Air Oxygen Delivery Method Room Air Narrative Exam Narrative: General adult man alert oriented no acute distress Chest nonlabored respiration Extremities warm well perfused Assessment & Plan Assessment & Plan narrative: The patient requires colorectal screening and colonoscopy is recommended. Technical details were discussed. Risks, benefits, alternatives explained. Risks including but not limited to myocardial infarction, aspiration, bleeding, pain, missed lesion, incomplete examination, need for further radiographic studies, colonic perforation, and need for major abdominal surgery were discussed. All questions were answered to their satisfaction, and they are in agreement with this plan.
[2023-11-02 14:57] VITALS: BP 104/66; PULSE 79; RESP 18; TEMP 36.7; O2SAT 98
[2023-11-02 15:02] VITALS: BP 103/68; PULSE 79; RESP 19; TEMP 36.7; O2SAT 99
--- NOTE | 2023-11-02 15:02 | P.OP.COLON_ITS ---
Operative Date/Time/Diagnoses Date of procedure: 11/02/23 Time of procedure: 15:03 Pre-op diagnosis: Colorectal Procedure & Clinicians Study performed: Colonoscopy and polypectomy Same procedure as scheduled: Yes Indications: Colorectal screening Surgeon: Jackson Mckeon Procedure Notes Procedure in detail: The history and physical was performed/updated and the patient is ASA class is 3. The procedure was discussed in detail with the patient. Potential risks complications including infection, bleeding, missed diagnosis, perforation, need for surgery, and were explained. Their questions were answered and informed consent was obtained. Patient was brought to the procedure room and placed standard monitoring equipment. The patient's vital signs were monitored continuously throughout the entire procedure. Prior to starting time-out was performed. The patient was placed in the left lateral recumbent position. Procedural sedation was administered by anesthesia. Examination began with a thorough inspection of the perianal area there was no evidence of fissures, fistulae, external hemorrhoids or cutaneous malignancy. The colonoscopy scope was then placed into the anal canal and was advanced to the cecum, which was identified by the ileocecal valve, the appendiceal orifice and the confluence of the taenia. The scope was then slowly withdrawn examining colon thoroughly in all directions, irrigating it of any residual stool. The scope was retroflexed within the rectum The patient tolerated the procedure well. They will be discharged once criteria are met. The prep was of fair quality. The withdrawl time was 7 minutes. FINDINGS * Sigmoid polyp 3 mm removed with cold snare * Rectum polyp 3 mm removed with cold snare * Diverticulosis mild Specimen(s): other (Rectal and sigmoid colonic polyps) Impression: Colonic polyps x2 Post-procedure Recommendations: High fiber diet Plan for aftercare: Follow-up is dependent on pathology findings likely 5 years. Disposition: same day surgery
[2023-11-02 15:08] VITALS: BP 119/84; PULSE 79; RESP 21; O2SAT 99
[2023-11-02 15:12] VITALS: BP 127/86; PULSE 76; RESP 18; TEMP 36.7; O2SAT 99
== END 2023-11-02 15:20 | disposition home or self-care (01) ==
PROVIDERS: PCP Student in an Organized Health Care Education/Training Program; Referring Provider Surgery; Visit Provider Surgery
PROC: 0DJD8ZZ Inspection of Lower Intestinal Tract, Via Natural or Artificial Opening Endoscopic (ICD-10-PCS; CPT 45378; principal; 2023-11-02 14:45)
DX: Z12.11 Encounter for screening for malignant neoplasm of colon (principal); K57.30 Diverticulosis of large intestine without perforation or abscess without bleeding; D12.5 Benign neoplasm of sigmoid colon; D12.8 Benign neoplasm of rectum
CPT/HCPCS: 45385; J2250; J2704

== ENCOUNTER → 2025-01-24 13:00 | Outpatient (CLI) | payer OTHER, SELFPAY ==
--- NOTE | 2025-01-24 13:01 | DI.CT.S_ITS ---
PROCEDURE: CT LUNG LOW DOSE SCREENING INDICATIONS: current smoker TECHNIQUE: Noncontrast 2.0-2.5 mm thick sections acquired from the pulmonary apices to the posterior costophrenic angles. 7 mm thick axial MIP, and 5 mm coronal and sagittal reformats were then acquired. For radiation dose reduction, the following was used: automated exposure control, adjustment of mA and/or kV according to patient size. COMPARISON: [facility], CT, CT LUNG LOW DOSE SCREENING, 10/26/2023, 11:21. FINDINGS: Image quality: Diagnostic. Lower Neck: No enlarged lymph nodes. Thyroid: No thyroid nodules which require sonographic follow up, per consensus guidelines. Axillae: No enlarged lymph nodes. Chest Wall: Unremarkable. Bones: Unremarkable. Lungs and Pleura: There is a 2 mm left upper lobe pulmonary nodule seen, as on series 3, image 56. Centrilobular emphysematous changes are seen. These are more prominent at the lung apices than at the lung bases. Mild subpleural bleb formation can also be seen. Mild apical scarring can be seen, which is stable. No focal infiltrates are seen. No pneumothorax or pleural effusions are seen. Heart: Heart size is normal. No pericardial effusion. There is mild coronary artery calcification. Thoracic Vessels: The aorta and pulmonary arteries demonstrate normal size. Mediastinum and Krissy: No enlarged lymph nodes. Esophagus: No wall thickening. No hiatal hernia. Upper Abdomen: Visualized upper abdomen solid organs and bowel loops appear normal. IMPRESSION: No suspicious pulmonary nodules. 2 mm left upper lobe pulmonary nodule again seen. Underlying emphysematous changes are seen. Pulmonary a focal scarring seen. LUNG-RADS 2; continued annual screening, if eligible. Clinically Significant Non-pulmonary Findings: Mild coronary artery calcification. Dictated by: Emmanuel Hernandez M.D. on 01/27/2025 at 11:44 Approved by: Emmanuel Hernandez M.D. on 01/27/2025 at 11:47
== END ==
PROVIDERS: PCP Student in an Organized Health Care Education/Training Program; Referring Provider Student in an Organized Health Care Education/Training Program; Visit Provider Student in an Organized Health Care Education/Training Program
DX: Z12.2 Encounter for screening for malignant neoplasm of respiratory organs (principal); F17.210 Nicotine dependence, cigarettes, uncomplicated; R91.1 Solitary pulmonary nodule; I25.10 Atherosclerotic heart disease of native coronary artery without angina pectoris
CPT/HCPCS: 71271

== ENCOUNTER → 2025-02-21 14:22 | Outpatient (CLI) | payer OTHER, SELFPAY ==
--- NOTE | 2025-02-21 14:25 | DI.RAD.S_ITS ---
PROCEDURE: XR WRIST RT MIN 3V INDICATIONS: shoulder and hand pain TECHNIQUE: Four views of the wrist were acquired. COMPARISON: None. FINDINGS: Bones: No fractures or dislocations. No suspicious bony lesions. Soft tissues: No suspicious soft tissue calcifications. IMPRESSION: No acute bony abnormality. Dictated by: Dian Dutton M.D. on 02/21/2025 at 15:51 Approved by: Dian Dutton M.D. on 02/21/2025 at 15:51
--- NOTE | 2025-02-21 14:25 | DI.RAD.S_ITS ---
PROCEDURE: XR SHOULDER RT MIN 2V INDICATIONS: shoulder and hand pain TECHNIQUE: Four views of the shoulder were acquired. COMPARISON: None. FINDINGS: Bones: No fractures or dislocations. Mild glenohumeral joint space loss without significant spur formation. No suspicious bony lesions. Visualized ribs appear intact. Soft tissues: No suspicious soft tissue calcifications. IMPRESSION: Minimal joint degeneration. Dictated by: Dian Dutton M.D. on 02/21/2025 at 15:50 Approved by: Dian Dutton M.D. on 02/21/2025 at 15:51
== END ==
PROVIDERS: PCP Student in an Organized Health Care Education/Training Program; Referring Provider Orthopaedic Surgery; Visit Provider Orthopaedic Surgery
DX: M25.511 Pain in right shoulder (principal); M25.531 Pain in right wrist; M19.011 Primary osteoarthritis, right shoulder; M47.812 Spondylosis without myelopathy or radiculopathy, cervical region; G89.29 Other chronic pain; Z68.21 Body mass index [BMI] 21.0-21.9, adult
CPT/HCPCS: 73030; 73110; 99213

== ENCOUNTER → 2025-03-10 11:00 | Outpatient (CLI) | payer OTHER, SELFPAY ==
[2025-03-10 11:14] LABS: Add Manual Diff / Slide Review NO; Basophils Absolute Auto 100 /uL (0-100); Basophils Percent Auto 0.7 % (0-2); Eosinophils Absolute Auto 100 /uL (0-450); Eosinophils Percent Auto 0.6 % (2-4); Hematocrit 39.1 % (41-53); Hemoglobin 13.5 g/dL (13.5-17.5); Lymphocytes Absolute Auto 2500 /uL (1100-4500); Lymphocytes Percent Auto 18.8 % (25-40); Mean Corpuscular HGB Conc 34.6 % (30-36); Mean Corpuscular Hemoglobin 33.2 PG (26-34); Mean Corpuscular Volume 96.2 fL (80-100); Monocytes Absolute Auto 1000 /uL (0-900); Monocytes Percent Auto 7.3 % (3-14); Neutrophils Absolute Auto 9600 /uL (1500-7000); Neutrophils Percent Auto 72.6 % (50-75); Platelet Count 423 X10^3/uL (150-400); Red Blood Cell Count 4.07 X10^6/uL (4.5-5.9); White Blood Cell Count 13.2 X10^3/uL (4.5-11.0)
[2025-03-10 11:29] LABS: Alanine Aminotransferase 14 IU/L (<50); Albumin 3.9 g/dL (3.5-5.0); Albumin Globulin Ratio 1.7 (1.0-2.8); Alkaline Phosphatase 75 U/L (38-126); Aspartate Aminotransferase 18 IU/L (17-59); BUN Creatinine Ratio 10.3 (6-22); Bilirubin Total 0.5 mg/dL (0.2-1.3); Blood Urea Nitrogen 8 mg/dL (9-20); Calcium 9.1 mg/dL (8.4-10.2); Carbon Dioxide 23 mmol/L (22-32); Chloride 95 mmol/L (98-107); Estimated Glomerular Filt Rate > 60 mL/min (>60); Globulin 2.3 g/dL (1.7-4.1); Glucose 123 mg/dL (70-99); HEMOLYSIS < 15 (0-50); Potassium 4.3 mmol/L (3.4-5.1); Sodium 128 mmol/L (137-145); Total Protein 6.2 g/dL (6.3-8.2)
== END ==
PROVIDERS: PCP Student in an Organized Health Care Education/Training Program; Referring Provider Student in an Organized Health Care Education/Training Program; Visit Provider Student in an Organized Health Care Education/Training Program
DX: D75.839 Thrombocytosis, unspecified (principal); E87.8 Other disorders of electrolyte and fluid balance, not elsewhere classified; R79.89 Other specified abnormal findings of blood chemistry
CPT/HCPCS: 36415; 80053; 85025

== ENCOUNTER → 2025-06-23 11:15 | Outpatient (CLI) | payer OTHER, SELFPAY ==
[2025-06-23 12:32] LABS: Add Manual Diff / Slide Review NO; Hematocrit 43.9 % (41-53); Hemoglobin 15.2 g/dL (13.5-17.5); Lymphocytes Absolute Auto 3000 /uL (1100-4500); Mean Corpuscular HGB Conc 34.6 % (30-36); Mean Corpuscular Hemoglobin 32.9 PG (26-34); Mean Corpuscular Volume 95.2 fL (80-100); Platelet Count 468 X10^3/uL (150-400)
[2025-06-23 12:33] LABS: Alanine Aminotransferase 15 IU/L (<50); Albumin 4.2 g/dL (3.5-5.0); Albumin Globulin Ratio 1.6 (1.0-2.8); Alkaline Phosphatase 97 U/L (38-126); Blood Urea Nitrogen 3 mg/dL (9-20); Calcium 8.7 mg/dL (8.4-10.2); Carbon Dioxide 23 mmol/L (22-32); Chloride 97 mmol/L (98-107); Estimated Glomerular Filt Rate > 60 mL/min (>60); Globulin 2.7 g/dL (1.7-4.1); Glucose 68 mg/dL (70-99); HEMOLYSIS < 15 (0-50); Potassium 4.2 mmol/L (3.4-5.1); Sodium 130 mmol/L (137-145); Total Protein 6.9 g/dL (6.3-8.2)
[2025-06-23 13:02] LABS: Prostate Specific Antigen 0.906 ng/mL (0.10-4.00)
== END ==
PROVIDERS: PCP Student in an Organized Health Care Education/Training Program; Referring Provider Physician Assistant; Visit Provider Physician Assistant
DX: R39.9 Unspecified symptoms and signs involving the genitourinary system (principal); D75.839 Thrombocytosis, unspecified; E87.8 Other disorders of electrolyte and fluid balance, not elsewhere classified; R79.89 Other specified abnormal findings of blood chemistry
CPT/HCPCS: 36415; 80053; 84153; 85025

== ENCOUNTER → 2025-06-30 11:02 | Outpatient (CLI) | payer OTHER, SELFPAY ==
[2025-06-30 11:34] LABS: Add Manual Diff / Slide Review NO; Hematocrit 42.2 % (41-53); Hemoglobin 14.4 g/dL (13.5-17.5); Lymphocytes Absolute Auto 3600 /uL (1100-4500); Mean Corpuscular HGB Conc 34.1 % (30-36); Mean Corpuscular Hemoglobin 32.3 PG (26-34); Mean Corpuscular Volume 94.8 fL (80-100); Platelet Count 423 X10^3/uL (150-400)
[2025-06-30 11:51] LABS: HEMOLYSIS < 15 (0-50); Iron 82 ug/dL (49-181)
[2025-06-30 11:53] LABS: Alanine Aminotransferase 13 IU/L (<50); Albumin 3.8 g/dL (3.5-5.0); Albumin Globulin Ratio 1.5 (1.0-2.8); Alkaline Phosphatase 86 U/L (38-126); Blood Urea Nitrogen 5 mg/dL (9-20); Calcium 8.9 mg/dL (8.4-10.2); Carbon Dioxide 27 mmol/L (22-32); Chloride 96 mmol/L (98-107); Estimated Glomerular Filt Rate > 60 mL/min (>60); Globulin 2.6 g/dL (1.7-4.1); Glucose 74 mg/dL (70-99); HEMOLYSIS < 15 (0-50); Potassium 4.5 mmol/L (3.4-5.1); Sodium 128 mmol/L (137-145); Total Protein 6.4 g/dL (6.3-8.2)
[2025-06-30 12:02] LABS: Percent Iron Saturation 25 % (20-50); Total Iron Binding Capacity 331 ug/dL (261-462); Transferrin 282 mg/dL (206-381)
[2025-06-30 12:28] LABS: Ferritin 27 ng/mL (18-464)
== END ==
PROVIDERS: PCP Student in an Organized Health Care Education/Training Program; Referring Provider Student in an Organized Health Care Education/Training Program; Visit Provider Student in an Organized Health Care Education/Training Program
DX: E87.1 Hypo-osmolality and hyponatremia (principal); Z79.899 Other long term (current) drug therapy; Z13.0 Encounter for screening for diseases of the blood and blood-forming organs and certain disorders involving the immune mechanism
CPT/HCPCS: 36415; 80053; 82728; 83540; 83550; 85025

== ENCOUNTER 2025-08-09 11:00 | Outpatient (CLI) | payer OTHER, SELFPAY ==
[2025-08-09 11:08] VITALS: BP 109/75; PULSE 86; RESP 16; TEMP 36.6; O2SAT 99
[2025-08-09 11:38] VITALS: BP 115/75; PULSE 73; RESP 17
[2025-08-09] MEDS: LIDOCAINE 1% (PF) 5 ML 10 ML INJ (11:43)
[2025-08-09 11:45] VITALS: BP 114/73; PULSE 70; RESP 18; O2SAT 100
[2025-08-09 11:52] VITALS: BP 111/72; PULSE 70; RESP 16; O2SAT 98
--- NOTE | 2025-08-09 12:46 | P.PCN_ITS ---
Date/Time/Diagnoses
--- NOTE | 2025-08-09 12:46 | PM.PROC.IR.1 ---
Date/Time/Diagnoses Date of procedure: 08/09/25 Time of procedure: 11:30 Pre-procedure diagnosis: Cervicothoracic radiculopathy Post-procedure diagnosis: same Procedure Notes Procedure: Interlaminar epidural steroid injection C7-T1 Indications: Cervicothoracic radiculopathy, neck pain Physician: Alonzo Ross Total sedation minutes: 0 Complications: none Procedure in detail & Post-procedure care: Patient is here for the planned procedure today as noted. No significant change since the last office visit. For additional clinical scenario please see those office notes. Focused exam: Vital signs reviewed as charted on intake. Gen: Well developed. No acute distress. CV: RRR, no M/R/G Chest: Non-labored breathing, CTAB. Psych: Alert and well-oriented. Mood/Affect: normal. Patient suitable for the planned procedure today: Yes === The following procedure was performed in the office today: Cervical Epidural Steroid Injection with fluoroscopic guidance - Interlaminar approach (43287) Levels Treated: C7-T1 Approach: interlaminar Soft tissue: [1% lidocaine 2 mL] Test dose: 1% lidocaine 1 mL Injectate: [1.5 mL dexamethasone (10mg/mL), 1 mL lidocaine 1%, 1.5 mL normal saline] Fluoroscopy Agent: Isovue 300-M 1.5 mL Notes: Right paramedian approach. 3.5 in 20 gauge Touhy needle utilized an adequate. Preprocedure pain 5/10, postprocedure pain 0/10. Procedure: After discussing the risks, benefits, and alternatives to the procedure, the patient expressed understanding and wished to proceed. The risks include but are not limited to infection, allergic reaction, nerve damage, stroke, paralysis, epidural hematoma, syncope, headache, respiratory or cardiac arrest, spinal cord injury, and scar formation. Informed consent was obtained and all patient questions were answered. The patient was brought to the procedure suite and placed in the prone position. A pre-procedural pause was conducted to verify: correct patient identity, procedure to be performed and as applicable, correct side and site, correct patient position, and any special requirements. Using a paramedian approach from the side noted above, the region overlying the target was localized under fluoroscopic visualization and the soft tissues overlying this structure were infiltrated with the anesthetic listed above. With fluoroscopic guidance, a #20 gauge Tuohy needle (unless otherwise noted) was inserted into the epidural space using a paramedian approach. The epidural space was localized utilizing intermittent multiplanar fluoroscopic guidance and loss of resistance technique. After negative aspiration, the contrast noted above was injected into the epidural space and the flow of contrast was observed, confirming epidural spread without evidence of intravascular or intrathecal spread. Multi-planar radiographs were obtained for documentation purposes. A test dose of lidocaine was given and the patient was observed for 30-60 seconds. There were no adverse reactions noted. Subsequently, the injectate as noted above was administered into the level noted above. The patient tolerated the procedure well and was discharged after an appropriate period of observation. If there are any complications, the patient was instructed to call us. The patient is to follow-up with the requesting provider in 2-3 weeks/as planned. This note was compiled using voice recognition software and therefore may contain typos. Please contact the author with any questions or concerns.
== END 2025-08-09 11:58 | disposition home or self-care (01) ==
LOC: RAD 11:01
PROVIDERS: PCP Student in an Organized Health Care Education/Training Program; Referring Provider Physical Medicine & Rehabilitation; Visit Provider Physical Medicine & Rehabilitation
DX: M54.13 Radiculopathy, cervicothoracic region (principal)
CPT/HCPCS: 62323; J1100